=== PATIENT | female | born 1970 | race Caucasian/White ===

== ENCOUNTER 2019-02-07 17:33 | Inpatient (IN) | payer OTHER ==
[~2019-02-07] VITALS: Ht 167.6 cm; Wt 100.7 kg
[~2019-02-07 17:33] MED LIST: CARISOPRODOL; CIPRO250 M1 PO; CYMBALTA60 MG PO; MEDROLDOSEPACK PO; NORCO 5-325 TA1 EACH PO; POLYMYXIN B/TMP10 ML OP; PYRIDIUM200 MG PO; ROBAXIN 750 MG750 M1 PO; ULTRAM 50MG TAB50 MG PO; VISTARIL 25 MG25 M1; VISTARIL 25 MG25 M1 PO; ZANAFLEX4 M1 PO; ZANTAC 150MG T150 M1 PO; ZPAK PO
[2019-02-07 18:10] VITALS: BP 145/102
[2019-02-07 18:47] LABS: URINE BILIRUBIN NEGATIVE (Negative); URINE BLOOD 3+ (Negative); URINE COLOR YELLOW; URINE GLUCOSE-RANDOM NEGATIVE (Negative); URINE KETONES TRACE (Negative); URINE LEUKOCYTES-REFLEX NEGATIVE (Negative); URINE PROTEIN TRACE (Negative); URINE SPECIFIC GRAVITY >= 1.030 (1.005-1.030); URINE UROBILINOGEN 0.2 E.U./dl (0.2-1.0)
[2019-02-07 18:48] LABS: URINE CLARITY HAZY; URINE NITRITE-REFLEX POSITIVE (Negative)
[2019-02-07 19:05] LABS: BACTERIA-REFLEX >30 Many /HPF (None Seen); CASTS None Seen /LPF (None Seen); MUCUS 4-6 Moderate strn/LPF (None Seen); SQUAMOUS >10 Many /LPF (0-3); URINE RBC >20 Many /HPF (0-2)
[2019-02-07 19:05] LABS: HEMATOCRIT 42.9 % (37.0-47.0); HEMOGLOBIN 14.7 gm/dL (12.0-15.0); MCH 30.1 pg (26.0-34.0); MCHC 34.3 g/dL (28.0-37.0); MPV 8.7 fl. (7.2-11.1); NUCLEATED RBCS 0 /100WBC; PLATELET COUNT* 335 thou/uL (150-400); RBC 4.88 mil/uL (4.20-5.00); RDW-CV 12.8 % (10.5-14.5); WBC 14.6 thou/uL (4.0-11.0)
[2019-02-07 19:06] LABS: CRYSTALS None Seen /LPF (None Seen)
[2019-02-07 19:13] LABS: CALCIUM 9.3 mg/dL (8.5-10.1); CREATININE 1.3 mg/dL (0.6-1.3); POTASSIUM 3.9 mmol/L (3.5-5.1)
[2019-02-07 19:20] LABS: TOTAL BILIRUBIN 0.4 mg/dL (<0.1-1.0); TOTAL PROTEIN 7.5 g/dL (6.4-8.2)
[2019-02-07 19:22] LABS: ABSOLUTE EOSINOPHILS 0.1 thou/uL (0.0-0.7); ABSOLUTE LYMPHOCYTES 1.8 thou/uL (0.8-5.3); ABSOLUTE MONOCYTES 0.3 thou/uL (0.0-1.2); ABSOLUTE NEUTROPHILS 12.4 thou/uL (1.6-8.1); ATYPICAL LYMPHS 2 %; PLATELET ESTIMATE ADEQUATE
[2019-02-07 20:35] VITALS: BP 134/81
[2019-02-07 20:45] VITALS: BP 130/81
--- NOTE | 2019-02-08 05:05 | NUR ---
PT ARRIVED AT 2049. A&O, VSS ON . ADM ASSESSMENT/HX COMPLETED. PT DENIED N/V. PAIN CONTROLLED BY FENTANYL. IVF RUNNING ORDERED. UP AD LETICIA. WILL CONTINUE TO MONITOR.
[2019-02-08 08:21] VITALS: BP 130/81
[2019-02-08 09:24] VITALS: BP 125/73
--- NOTE | 2019-02-08 10:30 | NUR ---
ATTEMPTED TO MEET WITH PT, OFF UNIT IN SURGERY
--- NOTE | 2019-02-08 12:38 | OP ---
[address] [id number] OPERATIVE REPORT Name: CORA SANABRIA Room: [address] IN M.R.#: [id number] Admission: 02/07/19 Attend Phys: Jony Nguyễn Discharge: Date of : 70 Report #: [id number] THIS REPORT FOR: //name// CC: Jony Harper DATE OF SERVICE: 02/08/2019 PREOPERATIVE DIAGNOSES: Left ureteral calculus and flank pain. POSTOPERATIVE DIAGNOSES: Left ureteral calculus and flank pain. PROCEDURE: Cystoscopy, left retrograde pyelogram, left ureteroscopy, laser lithotripsy, stone extraction, stent placement. SURGEON: Mickey Oconnor MD ANESTHESIA: General. ESTIMATED BLOOD LOSS: None. DRAINS: A 6 x 28 left ureteral stent. SPECIMENS: Stone fragments. COMPLICATIONS: None. INDICATIONS: This is a 48-year-old female with left flank pain. CT scan reveals a 7 mm left distal ureteral calculus. Alternatives for management were discussed and she has decided to undergo cystoscopy with left retrograde pyelogram, left ureteroscopy with laser lithotripsy, stone extraction, stent placement. Risks of procedure were explained including but not limited to bleeding, infection, anesthesia, cardiopulmonary and vascular events, injuries to urethra, bladder, ureter, possible development of strictures, possible need for additional procedures to eradicate stone, possible inability to bypass obstruction. We also discussed risks related to stent placement and the need for timely followup regarding any stent left in place. She voices clear understanding of all this and wants to proceed. DESCRIPTION OF PROCEDURE: The patient was on perioperative IV Rocephin. After induction of general anesthesia, she was positioned, prepped and draped in the lithotomy position. Cystourethroscopy was performed after a timeout procedure. The urethra and bladder were normal on systematic examination. The ureteral orifices were orthotopic. No blood was seen from either. A 5-Serbian ureteral catheter was used to perform a left retrograde pyelogram, which reveals a filling defect in the left distal ureter with dilation [place] [id number] OPERATIVE REPORT Name: CORA SANABRIA Room: [address] [place] ..#: [id number] Admission: 02/07/19 Attend Phys: Jony Nguyễn Discharge: Date of : 70 Report #: [id number] pelvis proximal to the stone. The catheter was removed and a sensor wire was advanced to the left renal pelvis with fluoroscopic guidance. Scope was removed leaving the wire in place. A semirigid ureteroscope was advanced alongside the wire and passes easily to the level of the stone. The stone was engaged with a 272 micron holmium laser fiber and laser lithotripsy performed at 6.4 [place]. Stone broke up nicely. Fragments were extracted with a 0 tip basket. This process was continued until all significant fragments were removed from the ureter. The scope was advanced a few centimeters proximally and no other stones were noted. There is edema in the distal ureter. I elected to place a stent. The scope was withdrawn with visual guidance and no additional ureteral abnormalities were seen. There were no remaining fragments. The wire was loaded on the cystoscope and used for placement of a 6 x 28 left ureteral stent with good position confirmed in the renal pelvis fluoroscopically and in the bladder visually. Lidocaine jelly was given per urethra. The patient tolerated the procedure well and was taken to the recovery room in stable condition. Plan will be to obtain a repeat radiograph in 1-2 weeks (approximately) and remove her stent if it does not show any significant residual fragments. <ELECTRONICALLY SIGNED> By: Mickey Oconnor MD 02/08/19 [id number] [id number] Oconnor MD /nt
--- NOTE | 2019-02-08 16:06 | NUR ---
MET WITH PT AND SPOUSE TO DISCUSS HOME SITUATION/DC PLANNING. PT LIVES WITH SPOUSE, WORKS OUTSIDE THE HOME AND IS INDEPENDENT AND ACTIVE. PT DENIES ANY DC NEEDS. PLANS TO GO HOME TOMORROW
--- NOTE | 2019-02-08 16:56 | NUR ---
PT A&Ox4. VITALS STABLE. IV PATENT. PAIN CONTROLLED WITH NORCO. TOLERATING DIET. DENIED N/V. UP AD LETICIA. URINATING WELL. CALL LIGHT WITHIN REACH. WILL CONTINUE TO MONITOR.
[2019-02-08 19:50] VITALS: BP 141/78
[2019-02-09] VITALS: BP 113/68
[2019-02-09 03:50] VITALS: BP 139/79
--- NOTE | 2019-02-09 04:38 | NUR ---
PATIENT HAS REMAINED ALERT AND ORIENTED X 4 THROUGHOUT THE SHIFT AND RESTING QUIETLY ON HOURLY ROUNDS. UP INDEPENDENTLY IN THE ROOM WITH STEADY GAIT. LARGE VOIDS PER BR. URINE WITH PINK TINT. NO CLOTS SEEN. GOOD ORAL INTAKE. ORAL PAIN MEDS X 2 TO GOOD EFFECT. AFEBRILE/VITAL SIGNS STABLE. CONTINUE TO MONITOR.
[2019-02-09 04:49] LABS: CALCIUM 8.8 mg/dL (8.5-10.1); CREATININE 0.9 mg/dL (0.6-1.3); POTASSIUM 4.1 mmol/L (3.5-5.1)
[2019-02-09 04:51] LABS: ABSOLUTE LYMPHOCYTES 2.1 thou/uL (0.8-5.3); ABSOLUTE MONOCYTES 1.1 thou/uL (0.0-1.2); ABSOLUTE NEUTROPHILS 8.6 thou/uL (1.6-8.1); BASOPHILS 0.2 %; EOSINOPHILS 0.2 %; HEMATOCRIT 36.6 % (37.0-47.0); LYMPHOCYTES 17.9 %; MCH 30.2 pg (26.0-34.0); MCHC 34.1 g/dL (28.0-37.0); MCV 88.6 fL (80.0-100.0); MONOCYTES 9.1 %; NUCLEATED RBCS 0 /100WBC; PLATELET COUNT* 282 thou/uL (150-400); POLYS 72.6 %; RBC 4.13 mil/uL (4.20-5.00); RDW-CV 12.9 % (10.5-14.5); WBC 11.9 thou/uL (4.0-11.0)
[2019-02-09 05:01] LABS: HEMOGLOBIN 12.5 gm/dL (12.0-15.0)
[2019-02-09 07:58] VITALS: BP 136/71
[2019-02-09] MEDS ORDERED: NORCO 5-325 TA1 EAC1 PO (10:30)
[2019-02-09] MEDS ORDERED: LEVSIN-SL0.125 MG SUBLING (10:31)
[2019-02-09] MEDS ORDERED: CEFUROXIME500 MG PO (10:33)
[2019-02-09 10:59] VITALS: BP 136/71
--- NOTE | 2019-02-09 11:21 | NUR ---
ASSESSMENT COMPLETE. VERBAL ORDER FROM [facility] WITH UROLOGY TO DC PATIENT. PRESCRIPTIONS GIVEN. PT VERBALIZES UNDERSTANDING AND FOLLOW UP INSTRUCTIONS. IV TAKEN OUT WITHOUT COMPLICATIONS. ALL BELONGINGS SENT WITH PATIENT. SEE ASSESSMENT AND VITALS FOR OTHER DETAILS.
[2019-02-09 11:22] VITALS: BP 136/71
[2019-02-17 13:08] LABS: STONE CA OXALATE DIHYDRATE 10 % (()); STONE CA OXALATE MONOHYDRATE 70 % (()); STONE CALCIUM PHOSPHATE 20 % (()); STONE COLOR Tan (())
== END 2019-02-09 11:20 | disposition home or self-care (01) | DRG 660 ==
LOC: M.ERS 17:33 → M.ORTHSURG 19:43 → M.TBA-ER 19:43 → M.ORTHSURG 20:47
PROVIDERS: Internal Medicine; Nurse Practitioner Family; ADMIT Family Medicine
PROC: 0T778DZ Dilation of Left Ureter with Intraluminal Device, Via Natural or Artificial Opening Endoscopic (ICD-10-PCS; principal; 2019-02-08)
PROC: BT1F1ZZ Fluoroscopy of Left Kidney, Ureter and Bladder using Low Osmolar Contrast (ICD-10-PCS; principal; 2019-02-08)
PROC: 0TC78ZZ Extirpation of Matter from Left Ureter, Via Natural or Artificial Opening Endoscopic (ICD-10-PCS; 2019-02-08)
DX: N13.6 Pyonephrosis (principal); R65.10 Systemic inflammatory response syndrome (SIRS) of non-infectious origin without acute organ dysfunction; N28.9 Disorder of kidney and ureter, unspecified; D72.829 Elevated white blood cell count, unspecified; Z98.891 History of uterine scar from previous surgery; Z90.710 Acquired absence of both cervix and uterus; Z90.722 Acquired absence of ovaries, bilateral; Z88.1 Allergy status to other antibiotic agents; Z90.49 Acquired absence of other specified parts of digestive tract; Z87.442 Personal history of urinary calculi; Z88.6 Allergy status to analgesic agent; Z88.8 Allergy status to other drugs, medicaments and biological substances